=== PATIENT | female | born 1975 | race American Indian/Alaskan Native ===

== ENCOUNTER 2016-06-15 18:24 | Emergency (ER) | payer SELFPAY ==
[2016-06-15] MEDS ORDERED: TYLENOL ONE (18:47)
[2016-06-15 18:49] VITALS: BP 138/77
[2016-06-15] MEDS ORDERED: TYLENOL PO ONE (18:50)
[2016-06-15 19:36] LABS: Basophils % (Auto) 0.7 % (0.0-1.8); Eosinophils % (Auto) 0.4 % (0.0-4.3); Hematocrit 34.9 % (30.3-42.9); Hemoglobin 11.7 gm/dl (10.1-14.3); Mean Corpuscular HGB Conc 34 % (30-34); Mean Corpuscular Hemoglobin 30 pg (28-32); Mean Corpuscular Volume 90 fl (79-97); Platelet Count 234 K/mm3 (140-440); Red Blood Count 3.89 M/mm3 (3.65-5.03); White Blood Count 3.4 K/mm3 (4.5-11.0)
[2016-06-15 19:48] LABS: Anion Gap 17 mmol/L; BUN/Creatinine Ratio 8.88; Blood Urea Nitrogen 8 mg/dL (7-17); Calcium 8.9 mg/dL (8.4-10.2); Carbon Dioxide 21 mmol/L (22-30); Glucose 91 mg/dL (65-100); Potassium 3.4 mmol/L (3.6-5.0); Sodium 134 mmol/L (137-145)
--- NOTE | 2016-06-16 01:08 | XRay Report ---
FINAL REPORT PROCEDURE: XR CHEST ROUTINE 2V TECHNIQUE: PA and lateral chest radiographs were obtained. CPT 60337 HISTORY: shortness of breath, fever, cough, body aches COMPARISON: No prior studies are available for comparison. FINDINGS: Heart: Normal. Mediastinum/Vessels: Normal. Lungs/Pleural space: Calcified lymph tissue identified in the right hilar region. Small 4 millimeter rounded calcified density lateral right lung most consistent with a small granuloma. No consolidation or effusion. No pneumothorax. Bony thorax: No acute osseous abnormality. Other: IMPRESSION: No evidence of an acute cardiopulmonary process..
--- NOTE | 2016-06-16 01:32 | Emergency Department Report ---
HPI - General Chief Complaint: Upper Respiratory Infection Time Seen by Provider: 06/16/16 00:50 - HPI HPI: This is a 41-year-old -[place] female presents to the emergency department, driving herself in to be seen, with the complaint of generalized body aches, subjective fever, chills, productive cough with chest soreness that began last night. She took some Advil last night for symptoms without much relief. She denies any past medical history. No recent travel or sick contacts at home. She does not have a primary care doctor. She denies any diarrhea, dysuria, vaginal bleeding, vaginal discharge, shortness of breath, vision change. ED Past Medical Hx - Past Medical History Previous Medical History?: No - Surgical History Past Surgical History?: No - Social History Smoking Status: Never Smoker Substance Use Type: None - Medications Home Medications: Home Medications Medication Instructions Recorded Confirmed Last Taken Type Ibuprofen [Motrin] 800 mg PO TID #30 tablet 11/12/12 Unknown Rx traMADol [Ultram 50 MG tab] 50 mg PO Q6HR PRN #30 tablet 11/12/12 Unknown Rx Nitrofurantoin Sharp/M-Cryst 100 mg PO BID #14 capsule 06/16/16 Unknown Rx [Macrobid CAP] ED Review of Systems ROS: Stated complaint: BODY ACHES/FEVER/CHILLS/CP Other details as noted in HPI Constitutional: chills, fever Eyes: denies: eye pain, eye discharge, vision change ENT: throat pain. denies: ear pain Respiratory: cough. denies: shortness of breath Cardiovascular: denies: palpitations, edema Gastrointestinal: denies: abdominal pain, nausea, diarrhea Genitourinary: denies: urgency, dysuria, discharge Musculoskeletal: myalgia. denies: joint swelling Skin: denies: rash, lesions Neurological: headache. denies: weakness, numbness, paresthesias Physical Exam - Physical Exam Vital Signs: Vital Signs 06/15/16 06/16/16 18:43 00:32 Temperature 102.6 F H 98.5 F Pulse Rate 98 H Respiratory 20 Rate Blood Pressure 138/77 O2 Sat by Pulse 100 Oximetry Physical Exam: GENERAL: The patient is well-developed well-nourished. HEENT: Normocephalic. Atraumatic. Extraocular motions are intact. Patient has moist mucous membranes. Pupils equal reactive to light bilaterally. There is some mild tonsillar hypertrophy but there is no erythema or exudates. No drooling or trismus. NECK: Supple. Trachea is midline. CHEST/LUNGS: Clear to auscultation. No cough heard during examination. There is no respiratory distress noted. HEART/CARDIOVASCULAR: Regular. There is no tachycardia. There is no gallop rub or murmur. ABDOMEN: Abdomen is soft, nontender. Patient has normal bowel sounds. There is no abdominal distention. SKIN: Skin is hot but dry. NEURO: The patient is awake, alert, and oriented. The patient is cooperative. The patient has no focal neurologic deficits. The patient has normal speech. Cranial nerves II through XII grossly intact. MUSCULOSKELETAL: There is no tenderness or deformity. There is no limitation range of motion. There is no evidence of acute injury. ED Course Vital Signs 06/15/16 06/16/16 18:43 00:32 Temperature 102.6 F H 98.5 F Pulse Rate 98 H Respiratory 20 Rate Blood Pressure 138/77 O2 Sat by Pulse 100 Oximetry ED Medical Decision Making - Lab Data Result diagrams: 06/15/16 19:12 06/15/16 19:12 - EKG Data -: EKG Interpreted by Nh EKG shows normal: sinus rhythm, axis, intervals, QRS complexes, ST-T waves Rate: normal - EKG Data When compared to previous EKG there are: previous EKG unavailable Interpretation: normal EKG - Radiology Data Radiology results: image reviewed interpreted by me: Chest x-ray did not show any acute process. Heart is normal shape and size. No effusions. No pneumothorax. No signs of pneumonia seen. - Medical Decision Making 41-year-old female presents to the emergency department with some generalized chills, body aches, productive cough. She presents with a fever Tmax 102. Chest x-ray was done that did not show any signs of pneumonia, pleural effusions , or any acute process. She had some mild sore throat so a rapid strep test was done but it was negative. Influenza was also negative. The rest the patient's labs are mostly unremarkable except for a mild urinary tract infection. She was given some Tylenol and Toradol with good improvement in her discomfort and resolution of her fever. She is feeling better and ready for discharge home. She will follow-up with her primary care doctor. We discussed using Tylenol and ibuprofen intermittently to treat discomfort and fever. She will get antibiotics for a UTI. She will return to the ER with any worsening of her symptoms or any acute distress. - Differential Diagnosis strep pharyngitis, influenza, pneumonia, viral syndrome Critical Care Time: No Critical care attestation.: If time is entered above; I have spent that time in minutes in the direct care of this critically ill patient, excluding procedure time. ED Disposition Clinical Impression: Body aches, Cough, Viral syndrome Fever Qualifiers: Fever type: unspecified Qualified Code(s): R50.9 - Fever, unspecified UTI (urinary tract infection) Qualifiers: Urinary tract infection type: acute cystitis Hematuria presence: without hematuria Qualified Code(s): N30.00 - Acute cystitis without hematuria Disposition: DISCHARGED TO HOME OR SELFCARE Is pt being admited?: No Condition: Stable Instructions: Viral Syndrome (ED), Urinary Tract Infection in Women (ED), Fever in Adults (ED) Additional Instructions: Please follow-up with your primary care doctor in the next few days. You can use Tylenol every 4 hours and ibuprofen every 6 hours, using weight-based dosing , as needed for fever or discomfort. Return to the emergency department with any worsening of your symptoms or any acute distress. Prescriptions: Nitrofurantoin Sharp/M-Cryst [Macrobid CAP] 100 mg PO BID #14 capsule Referrals: MISSY BRUMFIELD MD [Primary Care Provider] - 3-5 Days AGUSTIN LAW MD [Staff Physician] - 3-5 Days [facility] [Outside] - 3-5 Days Time of Disposition: 04:27
[2016-06-16] MEDS ORDERED: NACL 0.9% 1000 ML 1,000 ML IV ONE (01:33)
[2016-06-16] MEDS ORDERED: TYLENOL PO ONE (02:52)
[2016-06-16] MEDS ORDERED: TORADOL IV ONE (02:52)
[2016-06-16 03:58] LABS: Bilirubin,Urine NEG (Negative); Blood,Urine SM (Negative); Ketones,Urine 20 mg/dL (Negative); Leukocyte Esterase,Urine MOD (Negative); Mucus,Urine 3+ /HPF; Nitrite,Urine NEG (Negative)
[2016-06-16] MEDS ORDERED: MACROBID PO ONE (04:18)
== END 2016-06-16 04:33 | disposition home or self-care (01) ==
LOC: ED 18:24
DX: B34.9 Viral infection, unspecified (principal); N30.00 Acute cystitis without hematuria; R50.9 Fever, unspecified; R05 Cough
CPT/HCPCS: 36415; 71020; 80048; 81001; 81025; 85025; 87040; 87116; 87400; 87430; 93005; 93010; 96361; 96374; 99284; J1885; J7030